=== PATIENT | male | born 1985 | race Caucasian/White ===

== ENCOUNTER 2017-06-23 18:55 | Emergency (ER) | payer MEDICAID, OTHER, SELFPAY ==
[~2017-06-23] VITALS: Ht 180.3 cm; Wt 76.3 kg
[2017-06-23] MEDS ORDERED: LORazepam 2 MG/ML, 1ML IVPush ONE (20:00)
[2017-06-23 21:10] VITALS: BP 153/87
== END 2017-06-23 21:11 | disposition home or self-care (01) ==
LOC: ED 21:04
DX: F41.1 Generalized anxiety disorder (principal); F32.0 Major depressive disorder, single episode, mild
CPT/HCPCS: 71010; 93005; 99284

== ENCOUNTER 2018-02-17 21:31 | Emergency (ER) | payer MEDICAID ==
[~2018-02-17] VITALS: Ht 180.3 cm; Wt 75.0 kg
[2018-02-17 21:38] VITALS: BP 135/86
== END 2018-02-17 22:05 | disposition home or self-care (01) ==
LOC: ED 21:46
DX: K02.9 Dental caries, unspecified (principal); K08.89 Other specified disorders of teeth and supporting structures
CPT/HCPCS: 99283

== ENCOUNTER 2018-07-14 15:09 | Emergency (ER) | payer MEDICAID ==
[~2018-07-14] VITALS: Ht 177.8 cm; Wt 79.5 kg
[2018-07-14 15:11] VITALS: BP 130/86
== END 2018-07-14 16:11 | disposition home or self-care (01) ==
LOC: ED 16:05
DX: J06.9 Acute upper respiratory infection, unspecified (principal)
CPT/HCPCS: 71046; 99283

== ENCOUNTER 2020-02-18 19:37 | Emergency (ER) | payer MEDICAID ==
[~2020-02-18] VITALS: Ht 177.8 cm; Wt 89.4 kg
[2020-02-18 19:45] VITALS: BP 125/88
--- NOTE | 2020-02-18 21:15 | NUR ---
ASSIST RN: D/C INSTRUCTIONS, MEDS & F/U APPT'S RV'WD WITH PT, HE VERBALIZES UNDERSTANDING. PT STATES HE HAS A DENTIST THAT HE WILL CALL BACK TOMORROW. RX GIVEN X2. PT AMBULATED OUT OF ED WITHOUT DIFFICULTY.
== END 2020-02-18 21:16 | disposition home or self-care (01) ==
LOC: ED 20:13
DX: K02.9 Dental caries, unspecified (principal); R51 Headache
CPT/HCPCS: 99283